=== PATIENT | male | born 1970 | race Caucasian/White ===

== ENCOUNTER → 2019-06-26 17:42 | Outpatient (CLI) | payer OTHER, SELFPAY ==
--- NOTE | 2019-06-26 17:54 | DI.RAD.S_ITS ---
PROCEDURE: XR CHEST 2V INDICATIONS: r/o bronchitis/pneumonia TECHNIQUE: 2 views of the chest were acquired. COMPARISON: None. FINDINGS: Surgical changes and devices: None. Lungs and pleura: Lungs are clear. No pleural effusions or pneumothorax. Mediastinum: Mediastinal contours are normal. Heart size is normal. Bones and chest wall: No suspicious bony abnormalities. Soft tissues appear unremarkable. IMPRESSION: No pneumonia seen. Dictated by: Mani Mcmillan M.D. on 06/26/2019 at 18:07 Approved by: Mani Mcmillan M.D. on 06/26/2019 at 18:07
== END ==
PROVIDERS: Visit Provider Physician Assistant
DX: J40 Bronchitis, not specified as acute or chronic (principal)
CPT/HCPCS: 71046